=== PATIENT | female | born 1950 | race Two or more races ===

== ENCOUNTER 2018-07-09 19:06 | Emergency (ER) | payer MEDICARE, MEDICAID ==
[~2018-07-09] VITALS: Ht 157.5 cm; Wt 56.7 kg
--- NOTE | 2018-07-09 19:28 | NUR ---
Patient ambulated with stable gait. AAOx4. Patient speech clear, speaks in complete sentences. No neuro deficits noted. Patient came in with c/o head injury on Tuesday where she bumped the back of her head; denies any LOC. Respiratory even and unlabored. No cardiovascular distress noted, all pulses palpable. Denies any N/V. Patient in lowest position on bed, side rails upx2, call light within reach. Fall precautions implemented per protocol.
[2018-07-09] MEDS ORDERED: ACETAMINOPHEN ES 500 MG TABLET PO ONE (19:30)
[2018-07-09] MEDS ORDERED: ACETAMINOPHEN ES 500 MG TABLET ONE (19:37)
--- NOTE | 2018-07-09 20:23 | NUR ---
Patient back in room from CT. In stable condition.
--- NOTE | 2018-07-09 21:05 | NUR ---
Patient discharged to home in stable conditon. Written and verbal after care instructions given. Patient verbalizes understanding of instructions. Patient ambulated out stable gait
[2018-07-09 21:34] VITALS: BP 154/90
== END 2018-07-09 21:34 | disposition home or self-care (01) ==
LOC: ER 19:08
DX: S09.90XA Unspecified injury of head, initial encounter (principal); W22.8XXA Striking against or struck by other objects, initial encounter; Y93.89 Activity, other specified; Y92.89 Other specified places as the place of occurrence of the external cause; Y99.8 Other external cause status
CPT/HCPCS: 70450; A4663; A9150